=== PATIENT | female | born 1985 | race African-American/Black ===

== ENCOUNTER 2017-04-04 03:08 | Emergency (ER) | payer SELFPAY ==
[~2017-04-04] VITALS: Ht 188 cm; Wt 86.4 kg
[2017-04-04 03:12] VITALS: BP 142/71; PULSE 92; RESP 20; O2SAT 100
[2017-04-04] MEDS ORDERED: MORPHINE SULFATE 4 MG/ML INJ IV PUSH ONE (03:30)
[2017-04-04] MEDS ORDERED: SODIUM CHLORIDE 0.9% FLUSH 10 ML FLUSH IVF PRN (03:30)
[2017-04-04 03:32] VITALS: BP_SYST 113; BP_SYST 116; BP_DIAS 65; BP_DIAS 76; PULSE 67; TEMP 98.4
[2017-04-04 03:45] LABS: AUTOMATED NEUTROPHIL # 3.6 TH/MM3 (1.8-7.7); BASOPHIL % 0.6 % (0.0-2.0); EOSINOPHIL # 0.3 TH/MM3 (0-0.4); EOSINOPHIL % 4.9 % (0.0-4.0); HEMATOCRIT 30.2 % (35.0-46.0); HEMO FLAGS DIFF FINAL; LYMPH % 32.8 % (9.0-44.0); LYMPHOCYTE # 2.3 TH/MM3 (1.0-4.8); MEAN CORPUSCULAR HEMOGLOBIN 28.4 PG (27.0-34.0); NEUT % 51.7 % (16.0-70.0); PLATELET COUNT 143 TH/MM3 (150-450); RED BLOOD COUNT 3.52 MIL/MM3 (4.00-5.30); RED CELL DISTRIBUTION WIDTH 13.5 % (11.6-17.2)
--- NOTE | 2017-04-04 03:52 | RADRPT ---
EXAM DATE/TIME: 04/04/2017 03:20 [place] COMPARISON: CHEST SINGLE AP, January 19, 2015, 11:36. INDICATIONS : Chest pain. MEDICAL HISTORY : None. SURGICAL HISTORY : None. ENCOUNTER: Initial ACUITY: 1 day PAIN SCORE: 8/10 LOCATION: Bilateral chest FINDINGS: A single view of the chest demonstrates the lungs to be symmetrically aerated without evidence of mas s, infiltrate or effusion. The cardiomediastinal contours are unremarkable. Osseous structures are intact. CONCLUSION: No evidence of acute cardiopulmonary disease. Lars Vanegas MD on April 04, 2017 at 3:50 Board Certified Radiologist. This report was verified electronically.
[2017-04-04 04:00] LABS: PROTHROMBIN TIME - PATIENT 11.4 SEC (9.8-11.6)
[2017-04-04 04:12] LABS: ANION GAP 7 MEQ/L (5-15); BICARBONATE 24.7 MEQ/L (21.0-32.0); BLOOD UREA NITROGEN 12 MG/DL (7-18); CHLORIDE 109 MEQ/L (98-107); GLOMERULAR FILTRATION RATE 160 ML/MIN (>89); MAGNESIUM 1.8 MG/DL (1.5-2.5); POTASSIUM 3.5 MEQ/L (3.5-5.1); SODIUM (NA) 141 MEQ/L (136-145)
[2017-04-04 04:15] LABS: CREATINE KINASE 113 U/L (26-192)
[2017-04-04 04:27] LABS: CKMB 1.3 NG/ML (0.5-3.6)
--- NOTE | 2017-04-04 04:37 | PD ---
HPI Chief Complaint: Chest Pain Time Seen by Provider: 03:23 Travel History International Travel<30 days: No Contact w/Intl Traveler<30days: No Traveled to known affect area: No History of Present Illness HPI 31-year-old female was brought into the emergency room by EMS with history of chest pain and near-syncope. Patient says her pain is on the left side and has been going on for past couple days but worse today. Pain is sharp and is just there all the time. No aggravating or relieving factors identified. She seemed anxious. Vital signs were stable. Patient says she has history of PE that was diagnosed about a year or 2 ago but she stayed on the anticoagulant only for 2 weeks. She was told she didn't need it anymore since the clot was gone. [facility] Past Medical History Narrative Medical List of her past medical, surgical, social and family history is reviewed from the nursing note. Cardiovascular Problems: Yes ("BLOOD CLOT IN LUNG") Chest Pain: Yes (with bld clots 2011) Diabetes: No Diminished Hearing: No Musculoskeletal: Yes (CHRONIC BACK PAIN -PREVIOUS INJURY; 2 BULGING DISKS) ?: Unknown : 1 Para: 1 Social History Alcohol Use: Yes (OCCASIONALLY) Tobacco Use: Yes Substance Use: No Allergies-Medications (Allergen,Severity, Reaction): Coded Allergies: No Known Allergies (Verified , 05/03/16) Comments No known drug allergies. Reported Meds & Prescriptions Reported Meds & Active Scripts Active No Active Prescriptions or Reported Medications Narrative Medication List of her home medications reviewed from the nursing note. Review of Systems Except as stated in HPI: all other systems reviewed are Neg Physical Exam Narrative GENERAL: Awake, alert, anxious, moderate distress SKIN: Focused skin assessment warm/dry. HEAD: Atraumatic. Normocephalic. EYES: Pupils equal and round. No scleral icterus. No injection or drainage. ENT: No nasal bleeding or discharge. Mucous membranes pink and moist. NECK: Trachea midline. No JVD. CARDIOVASCULAR: Regular rate and rhythm. No murmur appreciated. RESPIRATORY: No accessory muscle use. Clear to auscultation. Breath sounds equal bilaterally. GASTROINTESTINAL: Abdomen soft, non-tender, nondistended. Hepatic and splenic margins not palpable. MUSCULOSKELETAL: No obvious deformities. No clubbing. No cyanosis. No edema. NEUROLOGICAL: Awake and alert. No obvious cranial nerve deficits. Motor grossly within normal limits. Normal speech. PSYCHIATRIC: Appropriate mood and affect; insight and judgment normal. Data Data Last Documented VS Vital Signs Date Time Temp Pulse Resp B/P Pulse Ox O2 Delivery O2 Flow Rate FiO2 04/04/17 03:32 98.4 67 113/65 Room Air 116/76 04/04/17 03:31 100 04/04/17 03:12 20 Orders Electrocardiogram (04/04/17:23) Basic Metabolic Panel (Bmp) (04/04/17 03:23) Ckmb (Isoenzyme) Profile (04/04/17 03:23) Complete Blood Count With Diff (04/04/17:23) D-Dimer (04/04/17) Magnesium (Mg) (04/04/17:23) Prothrombin Time / Inr (Pt) (04/04/17:23) Troponin I (04/04/17:23) Chest, Single Ap (04/04/17:) Ecg Monitoring (04/04/17:23) Bilateral Bp Monitoring (04/04/17:23) Iv Access Insert/Monitor (04/04/17:23) Oximetry (04/04/17:23) Oxygen Administration (04/04/17:23) Sodium Chloride 0.9% Flush (Ns Flush) (04/04/17 03:30) Morphine Inj (Morphine Inj) (04/04/17 03:30) CKMB (04/04/17 03:25) CKMB% (04/04/17 03:25) Labs Laboratory Tests Test 04/04/17 03:25 White Blood Count 7.0 TH/MM3 Red Blood Count 3.52 MIL/MM3 Hemoglobin 10.0 GM/DL Hematocrit 30.2 % Mean Corpuscular Volume 86.0 FL Mean Corpuscular Hemoglobin 28.4 PG Mean Corpuscular Hemoglobin 33.0 % Concent Red Cell Distribution Width 13.5 % Platelet Count 143 TH/MM3 Mean Platelet Volume 8.6 FL Neutrophils (%) (Auto) 51.7 % Lymphocytes (%) (Auto) 32.8 % Monocytes (%) (Auto) 10.0 % Eosinophils (%) (Auto) 4.9 % Basophils (%) (Auto) 0.6 % Neutrophils # (Auto) 3.6 TH/MM3 Lymphocytes # (Auto) 2.3 TH/MM3 Monocytes # (Auto) 0.7 TH/MM3 Eosinophils # (Auto) 0.3 TH/MM3 Basophils # (Auto) 0.0 TH/MM3 CBC Comment DIFF FINAL Differential Comment Prothrombin Time 11.4 SEC Prothromb Time International 1.0 RATIO Ratio D-Dimer Quantitative (PE/DVT) 0.40 MG/L FEU Sodium Level 141 MEQ/L Potassium Level 3.5 MEQ/L Chloride Level 109 MEQ/L Carbon Dioxide Level 24.7 MEQ/L Anion Gap 7 MEQ/L Blood Urea Nitrogen 12 MG/DL Creatinine 0.54 MG/DL Estimat Glomerular Filtration 160 ML/MIN Rate Random Glucose 82 MG/DL Calcium Level 8.5 MG/DL Magnesium Level 1.8 MG/DL Total Creatine Kinase 113 U/L Creatine Kinase MB 1.3 NG/ML Troponin I LESS THAN 0.02 NG/ML MDM Medical Decision Making Medical Screen Exam Complete: Yes Emergency Medical Condition: Yes Medical Record Reviewed: Yes Interpretation(s) Twelve-lead EKG was reviewed by me. Normal sinus rhythm, left axis deviation, nonspecific ST-T wave changes, IVCD. Heart rate of 73 bpm. Differential Diagnosis ACS, PE, nonspecific chest pain Narrative Course 4:36 AM blood test results of back and within normal limits. D-dimer is negative. Patient's only risk factor is her being smoker. She is a young otherwise healthy female. I'm comfortable discharging her home based on the blood test results become normal. Procedures EKG Prior to Arrival: No Diagnosis Primary Impression: Nonspecific chest pain Referrals: Primary Care Physician Additional Instructions: Please return to the ER if the condition worsens. Otherwise follow-up with your primary care in couple days. Take Tylenol/Motrin/ibuprofen for your pain. Med/Other Pt SpecificInfo: No Change to Meds Scripts No Active Prescriptions or Reported Meds Disposition: DISCHARGE HOME Condition: Stable Ramon Richards MD Apr 04, 2017 04:37
--- NOTE | 2017-04-04 10:46 | EKG ---
Date Performed: 04/04/2017 Time Performed: 03:18:41 PTAGE: 31 years EKG: Sinus rhythm WITH SINUS ARRHYTHMIA LEFT ANTERIOR FASCICULAR BLOCK ABNORMAL ECG PREVIOUS TRACING : 01/19/2015 11.17 Left bundle branch block not present in this tracing compar ed to the prior. DOCTOR: Oren Maki Interpretating Date/Time 04/04/2017 10:44:45
== END 2017-04-04 05:58 | disposition home or self-care (01) ==
LOC: NEPE 03:08
DX: R07.9 Chest pain, unspecified (principal); R55 Syncope and collapse; F17.210 Nicotine dependence, cigarettes, uncomplicated
CPT/HCPCS: 71010; 80048; 82550; 82552; 83735; 84484; 85025; 85379; 85610; 93005; 96374; 99285; J2270

== ENCOUNTER 2018-08-07 11:39 | Inpatient (IN) ==
[2018-08-07] MEDS ORDERED: Acetaminophen 325 MG Tablet PO ONE (12:54)
[2018-08-07] MEDS ORDERED: Sod Chloride 0.9% Inj 1,000 ML IV.SIG ONE (12:54)
--- NOTE | 2018-08-07 13:53 | ED ---
HPI General Chief Complaint: Abdominal Pain Stated Complaint: Vomiting Time Seen by Provider: 08/07/18 12:39 Source: patient Mode of arrival: ambulatory Limitations: no limitations History of Present Illness HPI narrative: 33-year-old female presents the ED for evaluation of abdominal pain. Cramping in nature, rated 8/10, intermittent. Onset this morning around 9 AM. Patient states her last menstrual period was the first week of June. She endorses risks of . She endorses an episode of nausea in the waiting room. She denies fever, chills, changes in bowel habits, dysuria, hematuria, vaginal bleeding, vaginal discharge, back pain. She denies chronic health problems and takes no daily medications. No treatment attempted before arrival. Related Data Previous Rx's Medication Instructions Recorded ibuprofen 600 mg PO TID #20 tab 08/08/18 oxycodone-acetaminophen 1 - 2 tab PO Q4H PRN #15 tab 08/08/18 Allergies Allergy/AdvReac Type Severity Reaction Status Date / Time No Known Allergies Allergy Verified 08/07/18 12:02 Review of Systems ROS: all other systems reviewed are negative PMFSH Medical History Medical History Patient denies medical problems (Acute) Surgical History Surgical History No history of previous surgery (Acute) Family History Family History Other Family history of cancer Family history of diabetes mellitus Family history of hypertension Social History Social History Substance History: No History of Abuse Second Hand Smoke Exposure: Yes Smoking Status: Current every day smoker Tobacco Type: Cigarettes How Often Do You Have a Drink Containing Alcohol: 2 to 4 times a month Recent Travel in [facility] within the Last 8 Weeks: No Recent Out of Country Travel within the Last 8 Weeks: No Immunization History Tetanus Immunization: >5 Years Exam Narrative Exam Narrative: GENERAL: Well-nourished, well-developed, anxious - [place] female no acute distress. SKIN: Focused skin assessment warm/dry. HEAD: Atraumatic. Normocephalic. EYES: Pupils equal and round. No scleral icterus. No injection or drainage. ENT: No nasal bleeding or discharge. Mucous membranes pink and moist. NECK: Trachea midline. No JVD. CARDIOVASCULAR: Regular rate and rhythm. No murmur appreciated. RESPIRATORY: No accessory muscle use. Clear to auscultation. Breath sounds equal bilaterally. GASTROINTESTINAL: Abdomen soft, nondistended. Active bowel sounds. Tender to palpation in the suprapubic region and RLQ. No palpable masses. Hepatic and splenic margins not palpable. PELVIC: MUSCULOSKELETAL: No obvious deformities. No clubbing. No cyanosis. No edema. NEUROLOGICAL: Awake and alert. No obvious cranial nerve deficits. Motor grossly within normal limits. Normal speech. PSYCHIATRIC: Appropriate mood and affect; insight and judgment normal. Course Initial Documented Vital Signs Temperature 98.1 F 08/07/18 11:56 Pulse Rate 75 08/07/18 11:56 Respiratory Rate 19 08/07/18 11:56 Blood Pressure 123/72 08/07/18 11:56 Pulse Oximetry 100 08/07/18 11:56 Last Documented Vital Signs Temperature 98.2 F 08/08/18 08:00 Pulse Rate 68 08/08/18 08:00 Respiratory Rate 18 08/08/18 09:34 Blood Pressure 117/61 08/08/18 08:00 Pulse Oximetry 98 08/08/18 08:00 Medical Decision Making LORI Attestation LORI supervised visit: Yes Attestation: I, Dr. Contreras, have reviewed the advance practice practitioner's documentation and am in agreement, met with the patient face to face, made the diagnosis, and the medical decision making was done by me. *My assessment and Findings: Ectopic MDM Narrative Medical decision making narrative: 33-year-old presents the ED for evaluation of cramping lower abdominal pain that started this morning. No vaginal bleeding at home but noticed vaginal bleeding upon urination here in the emergency room. Vitals reviewed. Physical exam reveals suprapubic and right adnexal tenderness. Patient was made n.p.o., placed on continuous cardiac monitoring, IV was placed. CBC reveals WBCs 6.9, hemoglobin 10 which is baseline per chart review. Patient's beta hCG 3541. UA without evidence of UTI. Ultrasound reveals right adnexal/ovarian live ectopic with cardiac activity at 117 bpm, positive pole and yolk sac. Measuring 6 weeks 0 days. I discussed the results of the workup with the patient as well as the need for admission and possible surgical intervention. The on-call OB/ GRINDING ROOM SUPERVISOR resident, Dr. Boyle was contacted. She came to the emergency room to evaluate the patient. Plan to admit to Dr. Kenyon and take to surgery later tonight. Please see [facility]OF[facility]IAL ORTHOPEDICS DENTIST notes for disposition Medical Screen Exam Complete: Yes Emergency Medical Condition: Yes Differential Diagnosis Differential Diagnosis: versus ectopic versus ovarian torsion versus appendicitis versus other Lab Data Result diagrams: 08/07/18 13:16 08/07/18 13:16 POC Results POC Urine Results Positive Lab Results 08/07/18 08/07/18 08/07/18 Range/Units 13:16 13:16 13:25 WBC 6.9 (4.0-11.0) th/mm3 RBC 3.38 L (4.00-5.30) mil/mm3 Hgb 10.0 L (11.6-15.3) gm/dL Hct 30.2 L (35.0-46.0) % MCV 89.4 (80.0-100.0) fL MCH 29.6 (27.0-34.0) pg MCHC 33.1 (32.0-36.0) % RDW 13.8 (11.6-17.2) % Plt Count 149 L (150-450) th/mm3 MPV 8.5 (7.0-11.0) fL Neut % (Auto) 76.6 H (16.0-70.0) % Lymph % (Auto) 16.0 (9.0-44.0) % [place] % (Auto) 6.4 (0.0-8.0) % Eos % (Auto) 0.6 (0.0-4.0) % Baso % (Auto) 0.4 (0.0-2.0) % Neut # (Auto) 5.3 (1.8-7.7) th/mm3 Lymph # (Auto) 1.1 (1.0-4.8) th/mm3 [place] # (Auto) 0.4 (0.0-0.9) th/mm3 Eos # (Auto) 0.0 (0.0-0.4) th/mm3 Baso # (Auto) 0.0 (0.0-0.2) th/mm3 WBC Differential . Differential Comment Auto diff final Sodium 139 (136-145) meq/L Potassium 3.7 (3.5-5.1) meq/L Chloride 108 H (98-107) meq/L Carbon Dioxide 23.1 (21.0-32.0) meq/L Anion Gap 8 (5-15) meq/L BUN 7 (7-18) mg/dL Creatinine 0.50 (0.50-1.00) mg/dL Estimated GFR Greater than 89 (>89) mL/min Random Glucose 89 (74-106) mg/dL Calcium 8.1 L (8.5-10.1) mg/dL Magnesium 2.0 (1.5-2.5) mg/dL Total Bilirubin 0.4 (0.2-1.0) mg/dL AST 7 L (15-37) U/L ALT 13 (10-53) U/L Alkaline Phosphatase 37 L (45-117) U/L Total Protein 6.8 (6.4-8.2) g/dL Albumin 3.6 (3.4-5.0) g/dL Lipase 71 L (73-393) U/L Beta HCG, Quant 3541 H (0-5) mIU/mL Urine Color Yellow (Yellw/Straw) Urine Clarity Clear (Clear) Urine pH 6.0 (5.0-8.5) Ur Specific [place] 1.010 (1.002-1.035) Urine Protein Negative (Neg-Trace) mg/dL Urine Glucose (UA) Negative (Negative) mg/dL Urine Ketones Trace H (Negative) mg/dL Urine Occult Blood Negative (Negative) Urine Nitrate Negative (Negative) Urine Bilirubin Negative (Negative) Urine Urobilinogen Less than 2 (Less than 2) mg/dL Ur Leukocyte Esterase Negative (Negative) Urine RBC 1 (0-3) /hpf Urine WBC 1 (0-5) /hpf Ur Squamous Epith Cells 3 (0-5) /hpf Urine Bacteria Rare H (None) /hpf Micro UA Comment Culture not ind Ur Microscopic Review Not Reportable Urine Culture Comments Culture not ind Blood Type Antibody Screen 08/07/18 Range/Units 15:52 WBC (4.0-11.0) th/mm3 RBC (4.00-5.30) mil/mm3 Hgb (11.6-15.3) gm/dL Hct (35.0-46.0) % MCV (80.0-100.0) fL MCH (27.0-34.0) pg MCHC (32.0-36.0) % RDW (11.6-17.2) % Plt Count (150-450) th/mm3 MPV (7.0-11.0) fL Neut % (Auto) (16.0-70.0) % Lymph % (Auto) (9.0-44.0) % [place] % (Auto) (0.0-8.0) % Eos % (Auto) (0.0-4.0) % Baso % (Auto) (0.0-2.0) % Neut # (Auto) (1.8-7.7) th/mm3 Lymph # (Auto) (1.0-4.8) th/mm3 [place] # (Auto) (0.0-0.9) th/mm3 Eos # (Auto) (0.0-0.4) th/mm3 Baso # (Auto) (0.0-0.2) th/mm3 WBC Differential Differential Comment Sodium (136-145) meq/L Potassium (3.5-5.1) meq/L Chloride (98-107) meq/L Carbon Dioxide (21.0-32.0) meq/L Anion Gap (5-15) meq/L BUN (7-18) mg/dL Creatinine (0.50-1.00) mg/dL Estimated GFR (>89) mL/min Random Glucose (74-106) mg/dL Calcium (8.5-10.1) mg/dL Magnesium (1.5-2.5) mg/dL Total Bilirubin (0.2-1.0) mg/dL AST (15-37) U/L ALT (10-53) U/L Alkaline Phosphatase (45-117) U/L Total Protein (6.4-8.2) g/dL Albumin (3.4-5.0) g/dL Lipase (73-393) U/L Beta HCG, Quant (0-5) mIU/mL Urine Color (Yellw/Straw) Urine Clarity (Clear) Urine pH (5.0-8.5) Ur Specific [place] (1.002-1.035) Urine Protein (Neg-Trace) mg/dL Urine Glucose (UA) (Negative) mg/dL Urine Ketones (Negative) mg/dL Urine Occult Blood (Negative) Urine Nitrate (Negative) Urine Bilirubin (Negative) Urine Urobilinogen (Less than 2) mg/dL Ur Leukocyte Esterase (Negative) Urine RBC (0-3) /hpf Urine WBC (0-5) /hpf Ur Squamous Epith Cells (0-5) /hpf Urine Bacteria (None) /hpf Micro UA Comment Ur Microscopic Review Urine Culture Comments Blood Type O Positive Antibody Screen Negative Imaging Data Radiologist's impression: Pelvis Ultrasound 08/07/18 12:54 CONCLUSION: 1. Right adnexal/ovarian ectopic with cardiac activity. The heart rate was calculated 117 bpm. A yolk sac is present. The pole correlates to gestational age of 6 weeks and 0 days. Trace free fluid is noted. The findings were called immediately to Michelle Cabrera at 3:50 PM on 08/07/2018. 2. Complex fluid collection within the endometrial cavity and extending into a tubular structure within the left adnexal region. Discharge Plan Discharge Disposition Patient Disposition: 31 Still Patient Discharge Condition Condition: Stable Discharge Order Discharge Orders: Discharge Order (Routine); Ordered 08/08/18 Ordered By: Nicolasa Burgos Discharge Details Anticipated Discharge Date: 08/08/18 Physicians Team ED Provider: Luis Contreras ED Midlevel Provider: Michelle Cabrera Primary Care Provider: Matt Savage Attending Provider: Hilary Kenyon Other Providers: Nicolasa Burgos Status ED Status: Left Department Discharge Information Discharge Date/Time: 08/07/18 17:44
[2018-08-07 14:01] LABS: Baso % (Auto) 0.4 % (0.0-2.0); Eos % (Auto) 0.6 % (0.0-4.0); Hematocrit 30.2 % (35.0-46.0); Lymph # (Auto) 1.1 th/mm3 (1.0-4.8); Mean Corpuscular HGB Conc 33.1 % (32.0-36.0); Mean Corpuscular Hemoglobin 29.6 pg (27.0-34.0); Mean Corpuscular Volume 89.4 fL (80.0-100.0); Mean Platelet Volume 8.5 fL (7.0-11.0); Mono # (Auto) 0.4 th/mm3 (0.0-0.9); Mono % (Auto) 6.4 % (0.0-8.0); Neut # (Auto) 5.3 th/mm3 (1.8-7.7); Neut % (Auto) 76.6 % (16.0-70.0); Platelet Count 149 th/mm3 (150-450); Red Blood Count 3.38 mil/mm3 (4.00-5.30); Red Cell Distribution Width 13.8 % (11.6-17.2); White Blood Count 6.9 th/mm3 (4.0-11.0)
[2018-08-07 14:06] LABS: Bacteria,Urine Rare /hpf; Bilirubin,Urine Negative (Negative); Clarity,Urine Clear (Clear); Color,Urine Yellow (Yellw/Straw); Glucose,Urine (UA) Negative (Negative); Leukocyte Esterase,Urine Negative (Negative); Nitrite,Urine Negative (Negative); Squamous Epithelial Cell,Urine 3 /hpf (0-5)
[2018-08-07 14:30] LABS: Alanine Aminotransferase 13 U/L (10-53); Albumin 3.6 g/dL (3.4-5.0); Anion Gap 8 meq/L (5-15); Aspartate Aminotransferase 7 U/L (15-37); Blood Urea Nitrogen 7 mg/dL (7-18); Calcium 8.1 mg/dL (8.5-10.1); Carbon Dioxide 23.1 meq/L (21.0-32.0); Chloride 108 meq/L (98-107); Glomerular Filtration Rate Greater Than 89 mL/min (>89); Glucose,Random 89 mg/dL (74-106); Lipase 71 U/L (73-393); Potassium 3.7 meq/L (3.5-5.1); Sodium 139 meq/L (136-145)
[2018-08-07] MEDS ORDERED: Morphine Inj 4 MG/ML Vial IV.PUSH ONE (14:46)
[2018-08-07 14:47] LABS: Alkaline Phosphatase 37 U/L (45-117); Beta HCG,Quantitative 3541 mIU/mL (0-5); Total Protein 6.8 g/dL (6.4-8.2)
--- NOTE | 2018-08-07 15:55 | US ---
EXAM DATE: 08/07/2018 3:27 PM EST AGE/SEX: 33 years / Female INDICATIONS: Pelvic pain. CLINICAL DATA: This is the patient's initial encounter. Patient reports that signs and symptoms have been present for 1 day and indicates a pain score of 9/10. MEDICAL/SURGICAL HISTORY: . . COMPARISON: No prior exams available for comparison. TECHNIQUE: Real-time ultrasound of the pelvis was performed using an endovaginal transducer. [facility] MEASUREMENTS: Uterus:__5.5 x 6.0 x 3.3 cm Endometrial Stripe:__>20 mm Right Ovary:__ 5.5 x 5.9 x 3.3 cm Left Ovary:__ not seen Not visualized. FINDINGS: No intrauterine gestational sac is identified. There is evidence of a right adnexal/ovarian ectopic p regnancy with cardiac activity. The heart rate was calculated 117 bpm. A yolk sac is present. The fet al pole correlates to gestational age of 6 weeks and 0 days. Trace free fluid is noted. There is complex fluid collection within the endometrial cavity. Complex fluid is also noted within a tubular structure within the left adnexal region. CONCLUSION: 1. Right adnexal/ovarian ectopic with cardiac activity. The heart rate was calculated 117 bpm. A yolk sac is present. The pole correlates to gestational age of 6 weeks and 0 days. Trace free fluid is noted. The findings were called immediately to Michelle Cabrera at 3:50 PM on 8. 2. Complex fluid collection within the endometrial cavity and extending into a tubular structure wit hin the left adnexal region. Electronically signed by: Kota Majano MD 08/07/2018 3:53 PM EST
--- NOTE | 2018-08-07 16:17 | P.HPOB ---
History of Present Illness Primary Care Physician: Matt Savage MD Chief Complaint: abdominal pain History of Present Illness: 33-year-old female presents to the ED with sharp and cramping, right-sided and suprapubic abdominal pain that woke her from sleep this morning at 8:30 AM. She states that originally felt like menstrual cramps and took Midol x2 for the pain. She experienced no relief with this medication, which prompted her to come to the emergency room. She admits to nausea and 3 episodes of vomiting today. No blood in the vomit. Denies fever, but notes chills when the pain comes on. She states that her pain has abated moderately with morphine. Patient states that she started experiencing vaginal bleeding in the ED after urinating. She notes dark red blood that filled up about half of a specimen cup. No clots noticed. Denies vaginal discharge. Denies chest pain, shortness of breath, problems urinating, diarrhea, constipation, leg pain or swelling. Patient states the last menstrual period was during the first week of June lasted for about 8 days, normal flow. Last had unprotected intercourse on June 24, states that she had a period that lasted for 8 days, which started on June 25. No history of STDs and denies exposure to STDs recently. She is monogamous with her boyfriend of 4 years. She was unaware that she was she was told in the ED. Since that she thought her period was late because she has a history of irregular and unpredictable periods , though she does get a period every month. They last anywhere between 3-4 or up to 8 days. Moderate flow. This was an unplanned , however, patient is tearful at the thought that the who have to be terminated for her health. OBGYN history: , has a 12-year-old daughter at home. No or delivery complications. Not currently on control, but had taken OCP in the past, prior to her first . She notes that she was in unreliable pill taker. She has gotten the Depo shot in the past. Reached menarche at 12-13 years of age Past medical history: PE in 2013 Medications: None Allergies: NKDA Surgical hx: None Social: Works at [employer]. Smokes pack every 3-4 days. Occasional alcohol use. No drug use. OBGYN: None PCP: Scheduled to establish care with Dr. Savage in September. Review of Systems Constitutional: Reports chills, Denies fever(s) Ears, Nose, Mouth, and Throat: Denies nasal discharge, Denies sore throat Cardiovascular: Denies chest pain Respiratory: Denies shortness of breath Gastrointestinal: Reports abdominal pain, Reports cramping, Reports nausea, Reports vomiting, Denies constipation, Denies loose stools Genitourinary: Reports abnormal vaginal bleeding, Denies blood in urine, Denies painful urination, Denies vaginal discharge PMFSH - History History Provided By: Patient - Medical History Medical History: Medical History (Last Reviewed 08/07/18 @ 13:52 by TISH Olson) Patient denies medical problems - Surgical History Surgical History: Surgical History (Last Reviewed 08/07/18 @ 13:52 by TISH Olson) No history of previous surgery - Tobacco History Tobacco Use In Past 30 Days: Yes Smoking Status: Current every day smoker Tobacco Type: Cigarettes - Alcohol History How Often Do You Have a Drink Containing Alcohol: 2 to 4 times a month - Substance Use History Substance History: No History of Abuse - Travel History Recent Travel in the [place] Within the Last 8 Weeks: No Recent Travel Out of the Country Within the Last 8 Weeks: No - Immunization History Tetanus Immunization: >5 Years Medications and Allergies Active Medications: Active Medications Sodium Chloride (Ns Flush) 2 ml IV.FLUSH PRN PRN PRN Reason: FLUSH AFTER USING IV ACCESS Allergies Allergy/AdvReac Type Severity Reaction Status Date / Time No Known Allergies Allergy Verified 08/07/18 12:02 Home Medications Medication Instructions Recorded Confirmed Type No Known Home Medications 08/07/18 08/07/18 History Exam Vital signs: Vital Signs 08/07/18 11:56 08/07/18 12:54 Temperature 98.1 F Pulse Rate 75 Respiratory Rate 19 Blood Pressure 123/72 Pulse Oximetry 100 99 Intake & Output 08/06/18 08/07/18 08/07/18 18:59 06:59 18:59 Intake Total 1000 / 1000 Balance 1000 / 1000 Weight 79.379 kg Intake: IV 1000 / 1000 NS Inj 1,000 ML @ Wide Open IV. 1000 / 1000 SIG BOLUS ONE Rx#:[id number] Narrative: GENERAL: Well-nourished, well-developed patient. SKIN: Warm and dry. HEAD: Normocephalic and atraumatic. EYES: No scleral icterus. No injection or drainage. ENT: No nasal drainage noted. Mucous membranes pink. Airway patent. CARDIOVASCULAR: Regular rate and rhythm without murmurs, gallops, or rubs. RESPIRATORY: Breath sounds equal bilaterally. No accessory muscle use. BREASTS: Bilateral exam showed no masses , no retractions, no nipple discharge. ABDOMEN/GI: Abdomen soft, bowel sounds present. Exquisitely tender to light and moderate palpation with obvious rebound in RLQ. GENITOURINARY: External Genitalia: intact and normal in appearance. Exquisite tenderness on pelvic exam. Sterile speculum exam showed normal vagina mucosa with lesions, normal cervix , closed cervical os, moderate amount of blood in the vaginal vault. EXTREMITIES: No cyanosis or edema. NEUROLOGICAL: Awake and alert. Motor and sensory grossly within normal limits. Five out of 5 muscle strength in all muscle groups. Normal speech. Results - Labs CBC & Chem 7: 08/07/18 13:16 08/07/18 13:16 Labs: Laboratory Results - last 24 hr 08/07/18 08/07/18 08/07/18 13:16 13:16 13:25 WBC 6.9 RBC 3.38 L Hgb 10.0 L Hct 30.2 L MCV 89.4 MCH 29.6 MCHC 33.1 RDW 13.8 Plt Count 149 L MPV 8.5 Neut % (Auto) 76.6 H Lymph % (Auto) 16.0 [place] % (Auto) 6.4 Eos % (Auto) 0.6 Baso % (Auto) 0.4 Neut # (Auto) 5.3 Lymph # (Auto) 1.1 [place] # (Auto) 0.4 Eos # (Auto) 0.0 Baso # (Auto) 0.0 WBC Differential . Differential Comment Auto diff final Sodium 139 Potassium 3.7 Chloride 108 H Carbon Dioxide 23.1 Anion Gap 8 BUN 7 Creatinine 0.50 Estimated GFR Greater than 89 Random Glucose 89 Calcium 8.1 L Magnesium 2.0 Total Bilirubin 0.4 AST 7 L ALT 13 Alkaline Phosphatase 37 L Total Protein 6.8 Albumin 3.6 Lipase 71 L Beta HCG, Quant 3541 H Urine Color Yellow Urine Clarity Clear Urine pH 6.0 Ur Specific [place] 1.010 Urine Protein Negative Urine Glucose (UA) Negative Urine Ketones Trace H Urine Occult Blood Negative Urine Nitrate Negative Urine Bilirubin Negative Urine Urobilinogen Less than 2 Ur Leukocyte Esterase Negative Urine RBC 1 Urine WBC 1 Ur Squamous Epith Cells 3 Urine Bacteria Rare H Micro UA Comment Culture not ind Ur Microscopic Review Not Reportable Urine Culture Comments Culture not ind - Imaging Impressions Pelvis Ultrasound 08/07/18 12:54 CONCLUSION: 1. Right adnexal/ovarian ectopic with cardiac activity. The heart rate was calculated 117 bpm. A yolk sac is present. The pole correlates to gestational age of 6 weeks and 0 days. Trace free fluid is noted. The findings were called immediately to Michelle Cabrera at 3:50 PM on 08/07/2018. 2. Complex fluid collection within the endometrial cavity and extending into a tubular structure within the left adnexal region. Caprini VTE Risk Assessment Caprini VTE Risk Assessment: Moderate/High Risk (score >= 2) Caprini Risk Assessment Model: Point Value = 1 Point Value = 2 Point Value = 3 Point Value = 5 Age 41-60 Minor surgery BMI > 25 kg/m2 Swollen legs Varicose veins or History of unexplained or recurrent spontaneous Oral contraceptives or hormone replacement Sepsis (< 1 month) Serious lung disease, including pneumonia (< 1 month) Abnormal pulmonary function Acute myocardial infarction Congestive heart failure (< 1 month) History of inflammatory bowel disease Medical patient at bed rest Age 61-74 Arthroscopic surgery Major open surgery (> 45 min) Laparoscopic surgery (> 45 min) Malignancy Confined to bed (> 72 hours) Immobilizing plaster cast Central venous access Age >= 75 History of VTE Family history of VTE Factor V Leiden Prothrombin [id number] Lupus anticoagulant Anticardiolipin antibodies Elevated serum homocysteine Heparin-induced thrombocytopenia Other congenital or acquired thrombophilia Stroke (< 1 month) Elective arthroplasty Hip, pelvis, or leg fracture Acute spinal cord injury (< 1 month) Prophylaxis Regimen: Total Risk Factor Score Risk Level Prophylaxis Regimen 0-1 Low Early ambulation 2 Moderate Order ONE of the following: *Sequential Compression Device (SCD) *Heparin 5000 units SQ BID 3-4 Higher Order ONE of the following medications: *Heparin 5000 units SQ TID *Enoxaparin/Lovenox 40 mg SQ daily (WT < 150 kg, CrCl > 30 mL/min) *Enoxaparin/Lovenox 30 mg SQ daily (WT < 150 kg, CrCl > 10-29 mL/min) *Enoxaparin/Lovenox 30 mg SQ BID (WT < 150 kg, CrCl > 30 mL/min) AND/OR *Sequential Compression Device (SCD) 5 or more Highest Order ONE of the following medications: *Heparin 5000 units SQ TID (Preferred with Epidurals) *Enoxaparin/Lovenox 40 mg SQ daily (WT < 150 kg, CrCl > 30 mL/min) *Enoxaparin/Lovenox 30 mg SQ daily (WT < 150 kg, CrCl > 10-29 mL/min) *Enoxaparin/Lovenox 30 mg SQ BID (WT < 150 kg, CrCl > 30 mL/min) AND *Sequential Compression Device (SCD) Assessment and Plan - Diagnosis (1) Ectopic without intrauterine Code(s): O00.90 - Unspecified ectopic without intrauterine Status: Acute (2) 6 weeks gestation of Code(s): Z3A.01 - Less than 8 weeks gestation of Status: Acute - Plan 33-year-old female presents to the ED with sharp and cramping, right lower quadrant and suprapubic abdominal pain that started this morning. Patient also experiencing mild vaginal bleeding. B-HCG 3541. Pelvic US performed in ED showed "Right adnexal/ovarian ectopic with cardiac activity. The heart rate was calculated 117 bpm. A yolk sac is present. The pole correlates to gestational age of 6 weeks and 0 days. Trace free fluid is noted" , consistent with ectopic . 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 Shahzad Darling and Dr. Kenyon
--- NOTE | 2018-08-07 16:58 | P.PN ---
Subjective Interval history: [facility] Attending Patient was seen and examined by me. She is a 33 year-old who is approximately 6 weeks by her LMP. She presented to the ED with the onset of severe abdominal pain this morning, 05/04. The pain has continued although she had mild relief with morphine. She reports the onset of light bleeding like the start of her period since arriving to the ED. The patient was unaware she was . Her medical history is unsignificant except for a PE in 2012 and tobacco use. Review of data shows a Bhcg of 3514, Hgb 10.0, Ultrasound with a right adnexal mass with ectopic measuring approximately 4 x 3 cm. There is a heart rate observed of 117. Examination reveals a patient who is uncomfortable appearing. CTAB, RRR. Abdominal examination with NABS, RLQ tenderness with associated rebound. Pelvic examination reveals a small amount of blood in the posterior fornix, approximately 25 cc. The patient was consented for removal of ectopic with an examination under anesthesia and a likely laparoscopic salpingectomy with any other indicated procedures. The risks were discussed and include but are not limited to pain, infection, bleeding, removal of other affected organs, laparotomy, injury to other organs like the bladder/bowels/nerves/vessels, need for a repeat surgery, need for a blood transfusion, and other possible risks. All of the patient's questions were answered and consent was signed. The OR was notified and report given to Dr. Pike who is in agreement with plan and will perform the procedure. Physical Exam Vital signs: Vital Signs 08/07/18 11:56 08/07/18 12:54 08/07/18 16:27 Temperature 98.1 F Pulse Rate 75 74 Respiratory Rate 19 18 Blood Pressure 123/72 119/78 Pulse Oximetry 100 99 99 Intake & Output 08/06/18 08/07/18 08/07/18 18:59 06:59 18:59 Intake Total 1000 / 1000 Balance 1000 / 1000 Weight 79.379 kg Intake: IV 1000 / 1000 NS Inj 1,000 ML @ Wide Open IV. 1000 / 1000 SIG BOLUS ONE Rx#:[id number] Results - Labs CBC & Chem 7: 08/07/18 13:16 08/07/18 13:16 Laboratory Results - last 24 hr 11/13/18 11/13/18 11/13/18 13:16 13:16 13:25 WBC 6.9 RBC 3.38 L Hgb 10.0 L Hct 30.2 L MCV 89.4 MCH 29.6 MCHC 33.1 RDW 13.8 Plt Count 149 L MPV 8.5 Neut % (Auto) 76.6 H Lymph % (Auto) 16.0 [place] % (Auto) 6.4 Eos % (Auto) 0.6 Baso % (Auto) 0.4 Neut # (Auto) 5.3 Lymph # (Auto) 1.1 [place] # (Auto) 0.4 Eos # (Auto) 0.0 Baso # (Auto) 0.0 WBC Differential . Differential Comment Auto diff final Sodium 139 Potassium 3.7 Chloride 108 H Carbon Dioxide 23.1 Anion Gap 8 BUN 7 Creatinine 0.50 Estimated GFR Greater than 89 Random Glucose 89 Calcium 8.1 L Magnesium 2.0 Total Bilirubin 0.4 AST 7 L ALT 13 Alkaline Phosphatase 37 L Total Protein 6.8 Albumin 3.6 Lipase 71 L Beta HCG, Quant 3541 H Urine Color Yellow Urine Clarity Clear Urine pH 6.0 Ur Specific [place] 1.010 Urine Protein Negative Urine Glucose (UA) Negative Urine Ketones Trace H Urine Occult Blood Negative Urine Nitrate Negative Urine Bilirubin Negative Urine Urobilinogen Less than 2 Ur Leukocyte Esterase Negative Urine RBC 1 Urine WBC 1 Ur Squamous Epith Cells 3 Urine Bacteria Rare H Micro UA Comment Culture not ind Ur Microscopic Review Not Reportable Urine Culture Comments Culture not ind Blood Type 08/07/18 15:52 WBC RBC Hgb Hct MCV MCH MCHC RDW Plt Count MPV Neut % (Auto) Lymph % (Auto) [place] % (Auto) Eos % (Auto) Baso % (Auto) Neut # (Auto) Lymph # (Auto) [place] # (Auto) Eos # (Auto) Baso # (Auto) WBC Differential Differential Comment Sodium Potassium Chloride Carbon Dioxide Anion Gap BUN Creatinine Estimated GFR Random Glucose Calcium Magnesium Total Bilirubin AST ALT Alkaline Phosphatase Total Protein Albumin Lipase Beta HCG, Quant Urine Color Urine Clarity Urine pH Ur Specific [place] Urine Protein Urine Glucose (UA) Urine Ketones Urine Occult Blood Urine Nitrate Urine Bilirubin Urine Urobilinogen Ur Leukocyte Esterase Urine RBC Urine WBC Ur Squamous Epith Cells Urine Bacteria Micro UA Comment Ur Microscopic Review Urine Culture Comments Blood Type O Positive - Imaging Impressions Pelvis Ultrasound 08/07/18 12:54 CONCLUSION: 1. Right adnexal/ovarian ectopic with cardiac activity. The heart rate was calculated 117 bpm. A yolk sac is present. The pole correlates to gestational age of 6 weeks and 0 days. Trace free fluid is noted. The findings were called immediately to Michelle Cabrera at 3:50 PM on 08/07/2018. 2. Complex fluid collection within the endometrial cavity and extending into a tubular structure within the left adnexal region.
[2018-08-07] MEDS ORDERED: Lidocaine 1%/Epinephrine 1:100,000 Inj 30 ML Vial ONE (17:18)
[2018-08-07] MEDS ORDERED: Phenylephrine/NS 1000 MCG/10ML Syringe IV.PUSH ONE (17:42)
[2018-08-07] MEDS ORDERED: Lidocaine PF 1% Inj 5 ML Syringe OTHER ONE (17:42)
[2018-08-07] MEDS ORDERED: Ketorolac Inj 30 MG/ML (IVP) Vial IV.PUSH ONE (17:42)
[2018-08-07] MEDS ORDERED: ceFAZolin 2 GM Premix Inj 2 GM/50 ML PIGGYBACK IV.SIG ONE (17:52)
[2018-08-07] MEDS ORDERED: Fluorescein Sod 10% Inj 500 MG/5 ML Ampul IV.PUSH ONE (19:04)
[2018-08-07] MEDS ORDERED: fentaNYL Citrate Inj 100 MCG/2 ML Ampul ONE (19:55)
--- NOTE | 2018-08-07 19:55 | P.PCNOB ---
Pre-Op/Post-Op Diagnoses Operation Date: 08/07/18 17:00 <No data on this case meets the specified criteria> Right ectopic right ovarian Procedure: Procedures Operation Date: 08/07/18 17:00 Actual Procedures Side Surgeon p exam under anesthesia, lapaoscopy, removal of ectopic with right side salpingectomy-oophrectomy, cystoscopy Regan Pike MD Right salpingoopherctomy cystoscopy Estimated blood loss (mL): 150 Anesthesia type: General Complications: none Specimen: other (right tube and ovary) Findings: right ovarian with extensive adhesions nl cystoscopy Disposition: observation (late night, anemia, nausea) Narrative: see dictated note
[2018-08-07] MEDS: Sod Chloride 0.9% Inj 1,000 ML IV.CONT SCH (20:35)
[2018-08-07] MEDS ORDERED: Acetaminophen 325 MG Tablet PO PRN (20:49)
[2018-08-07] MEDS ORDERED: Simethicone 80 MG Chew Tablet PO PRN (20:49)
[2018-08-07] MEDS ORDERED: Zolpidem Tartrate 5 MG Tablet PO PRN (21:00)
--- NOTE | 2018-08-07 21:30 | MP ---
cc: Giancarlo Pike MD DATE OF OPERATION: 08/07/2018 PREOPERATIVE DIAGNOSIS: Right ectopic . POSTOPERATIVE DIAGNOSIS: 1. Right ovarian . 2. Left hydrosalpinx. SURGEON: Giancarlo Pike MD. ANESTHESIA: General endotracheal and OG tube. ELECTRIC POWER MACHINE OPERATOR: [place] staff x1. ESTIMATED BLOOD LOSS: 250 mL upon entry into the abdominal cavity, additional 150 mL during the case. FLUID: 1000 mL crystalloid. URINE OUTPUT: 200 mL PROCEDURES: 1. Laparoscopic right salpingo-oophorectomy. 2. Lysis of adhesions. 3. Revision of a left hydrosalpinx. 4. Diagnostic cystoscopy. FINDINGS: External genitalia normal. POP-Q score Aa is -3, Ap is -2, point C is -8, total vaginal length is 10, vaginal hiatus is 6, perineal body is 4. Internal anatomy shows extensive adhesions consistent with prior chronic PID. Left tube significantly hydropic, but ovary is normal on the left. The right tube and ovary are intimately involved with ectopic , unable to separate the tube and the ovary. Bowel normal. Appendix normal. Upper abdomen normal. DIAGNOSTIC CYSTOSCOPY: Intraoperatively shows a normal trigone, good coaptation of the urethra, ureteral orifice patent x2, dome and base of bladder normal. SPECIMENS: Right tube and ovary. COMPLICATIONS: None. DISPOSITION: Recovery room, stable. COUNTS: Needle and sponge counts correct. DRAINS: Argueta catheter. DVT PROPHYLAXIS: Sequential compression devices. ANTIBIOTIC PROPHYLAXIS: Ancef 2 grams. INDICATIONS FOR PROCEDURE: The patient presented to emergency room with signs and symptoms consistent with ectopic . She had elevated hCG over 3000. She had a right lower quadrant, rebound tenderness and had an ultrasound that showed a complex mass involving the right tube and ovary with a heartbeat noted. The patient was taken to the OR, identified, prepped and draped in standard fashion for procedure in dorsal lithotomy position with careful attention paid to both legs in stirrups to avoid undue stress neurovascular structures; above findings noted. The recommended document. Argueta catheter placed. Umbilicus was infiltrated with epinephrine and lidocaine solution. A small incision was made in the 5 mm trocar. The 5 mm trocar was placed under direct visualization. Gas insufflated and the above findings noted. A 10-12 trocar was placed suprapubically under direct visualization. Left lower quadrant incision was made and a trocar was placed after anesthetizing the area and using a needle as a guide. There was a significant distortion of anatomy on the right side. This had the appearance of an ovarian as the tube and ovary were intimately involved with a complex mass. There was no way to separate two. A decision was made to remove the ovary and tube on the right side. Ureter was identified and the right. We took down the infundibulopelvic ligament, the uteroovarian ligament, and the tube without complication. On the right side, this area was hemostatic with the gas pressure on the left. There was significant distortion of the tube. The tube was fenestrated and decompressed without complications. Gas was expressed. All were hemostatic with gas pressure. At this point, cystoscopy was performed using a 17-Stateless bridge, a 70-degree scope. The patient received fluorescein 1 mL. The fluorescein was clearly obvious that there was patency of the ureters x2 with a green urine flowing from both ureteral orifices briskly to localize the dome and the base of bladder were normal. At this point, attention was turned back to the abdomen. Again pelvis inspected, irrigated. All areas were hemostatic. We did place a hemostatic powder for added reassurance and then we expressed gas from the abdomen, closed the 07/06/2018 port with deep Vicryl suture, incorporating the fascia closed the skin with 4-0 Monocryl and Dermabond. The procedure was concluded. The patient taken to recovery in stable condition. MD HEIDI Escudero/russell , 08:03 PM , 08:12 PM
[2018-08-08] MEDS: Sod Chloride 0.9% Inj 1,000 ML IV.CONT SCH ×3 (02:54→09:41)
[2018-08-08 06:53] VITALS: O2SAT 98
--- NOTE | 2018-08-08 08:24 | P.PNOB ---
Assessment and Plan (1) Ectopic without intrauterine Status: Acute Assessment and plan: s/p laparoscopic right salpingo-oophorectomy PPD#1 Routine post-op care including pain control Discharge today (2) 6 weeks gestation of Status: Acute - Postoperative Procedures Operation Date: 08/07/18 17:00 Actual Procedures Side Surgeon p exam under anesthesia, lapaoscopy, removal of ectopic with right side salpingectomy-oophrectomy, cystoscopy Regan Pike MD Postoperative day: 1 Postoperative status: doing well Postoperative plan: routine post-op care, discharge - Time Spent With Patient Total time spent is greater than 50% in coordination of care (as documented) at patient's floor/unit and/or counseling patient: Subjective Interval history: Patient is a 33-year-old who presented to the ED with sharp, cramping right -sided and suprapubic abdominal pain. US found evidence of right adnexal/ ovarian ectopic with cardiac activity. Patient was then taken to OR for a laparoscopic right salpingo-oophorectomy by Dr. Pike. Patient doing well this morning. Her pain is well-controlled. She denies chest pain, shortness of breath, nausea and vomiting. She denies lower extremity pain and swelling. All questions were answered. Patient to be discharged today. Subjective: patient reports feeling better, patient desires discharge, pain is well controlled, patient is tolerating oral intake Physical Exam Vital signs: Temp Pulse Resp BP Pulse Ox 97.9 F 80 17 113/60 98 08/08/18 04:49 08/08/18 04:49 08/08/18 04:49 08/08/18 04:49 08/08/18 04:49 Narrative: GENERAL: Patient is well-developed, well-nourished in no acute distress. SKIN: Warm and dry. HEAD: Atraumatic. Normocephalic. EYES: Pupils equal and round. No scleral icterus. No injection or drainage. ENT: No nasal bleeding or discharge. Mucous membranes pink and moist. CARDIOVASCULAR: Regular rate and rhythm. RESPIRATORY: No accessory muscle use. Clear to auscultation. Breath sounds equal bilaterally. GASTROINTESTINAL: Abdomen soft, non-tender, nondistended. MUSCULOSKELETAL: Extremities without clubbing, cyanosis, or edema. No obvious deformities. NEUROLOGICAL: Awake and alert. No obvious cranial nerve deficits. PSYCHIATRIC: Appropriate mood and affect; insight and judgment normal. - Urinary Catheter Management Indwelling Urethral Catheter Cath placed during this visit: yes Urethral indwelling: Yes Reason for Continuing: Decision to DC catheter Insertion date: 08/07/18 Insertion time: 18:05 Results - Labs CBC & Chem 7: 08/07/18 13:16 08/07/18 13:16 Labs: Laboratory Results - last 24 hr 08/07/18 08/07/18 08/07/18 13:16 13:16 13:25 WBC 6.9 RBC 3.38 L Hgb 10.0 L Hct 30.2 L MCV 89.4 MCH 29.6 MCHC 33.1 RDW 13.8 Plt Count 149 L MPV 8.5 Neut % (Auto) 76.6 H Lymph % (Auto) 16.0 [place] % (Auto) 6.4 Eos % (Auto) 0.6 Baso % (Auto) 0.4 Neut # (Auto) 5.3 Lymph # (Auto) 1.1 [place] # (Auto) 0.4 Eos # (Auto) 0.0 Baso # (Auto) 0.0 WBC Differential . Differential Comment Auto diff final Sodium 139 Potassium 3.7 Chloride 108 H Carbon Dioxide 23.1 Anion Gap 8 BUN 7 Creatinine 0.50 Estimated GFR Greater than 89 Random Glucose 89 Calcium 8.1 L Magnesium 2.0 Total Bilirubin 0.4 AST 7 L ALT 13 Alkaline Phosphatase 37 L Total Protein 6.8 Albumin 3.6 Lipase 71 L Beta HCG, Quant 3541 H Urine Color Yellow Urine Clarity Clear Urine pH 6.0 Ur Specific [place] 1.010 Urine Protein Negative Urine Glucose (UA) Negative Urine Ketones Trace H Urine Occult Blood Negative Urine Nitrate Negative Urine Bilirubin Negative Urine Urobilinogen Less than 2 Ur Leukocyte Esterase Negative Urine RBC 1 Urine WBC 1 Ur Squamous Epith Cells 3 Urine Bacteria Rare H Micro UA Comment Culture not ind Ur Microscopic Review Not Reportable Urine Culture Comments Culture not ind Blood Type Antibody Screen 08/07/18 15:52 WBC RBC Hgb Hct MCV MCH MCHC RDW Plt Count MPV Neut % (Auto) Lymph % (Auto) [place] % (Auto) Eos % (Auto) Baso % (Auto) Neut # (Auto) Lymph # (Auto) [place] # (Auto) Eos # (Auto) Baso # (Auto) WBC Differential Differential Comment Sodium Potassium Chloride Carbon Dioxide Anion Gap BUN Creatinine Estimated GFR Random Glucose Calcium Magnesium Total Bilirubin AST ALT Alkaline Phosphatase Total Protein Albumin Lipase Beta HCG, Quant Urine Color Urine Clarity Urine pH Ur Specific [place] Urine Protein Urine Glucose (UA) Urine Ketones Urine Occult Blood Urine Nitrate Urine Bilirubin Urine Urobilinogen Ur Leukocyte Esterase Urine RBC Urine WBC Ur Squamous Epith Cells Urine Bacteria Micro UA Comment Ur Microscopic Review Urine Culture Comments Blood Type O Positive Antibody Screen Negative - Imaging Impressions Pelvis Ultrasound 08/07/18 12:54 CONCLUSION: 1. Right adnexal/ovarian ectopic with cardiac activity. The heart rate was calculated 117 bpm. A yolk sac is present. The pole correlates to gestational age of 6 weeks and 0 days. Trace free fluid is noted. The findings were called immediately to Michelle Cabrera at 3:50 PM on 08/07/2018. 2. Complex fluid collection within the endometrial cavity and extending into a tubular structure within the left adnexal region.
--- NOTE | 2018-08-08 09:20 | P.PNOB ---
Assessment and Plan (1) Ectopic without intrauterine Status: Acute - Postoperative Procedures Operation Date: 08/07/18 17:00 Actual Procedures Side Surgeon p exam under anesthesia, lapaoscopy, removal of ectopic with right side salpingectomy-oophrectomy, cystoscopy Regan Pike MD SAME Postoperative day: 1 Postoperative status: doing well Postoperative plan: routine post-op care, discharge (Doing well and will see in office next week to discuss path. Ok to be off work until 08/15 but can return sooner if desires. Has I/P. Given Rx for toradol and phone # of office.) - Time Spent With Patient Total time spent is greater than 50% in coordination of care (as documented) at patient's floor/unit and/or counseling patient: 15 less than 15 minutes Subjective Interval history: Patient is a 33-year-old female presents to the ED with sharp and cramping , right-sided and suprapubic abdominal pain Subjective: patient reports feeling better Physical Exam Vital signs: Temp Pulse Resp BP Pulse Ox 97.9 F 80 17 113/60 98 08/08/18 04:49 08/08/18 04:49 08/08/18 04:49 08/08/18 04:49 08/08/18 04:49 OK - Constitutional no acute distress - Routine Abdominal Exam Present: soft, normoactive bowel sounds - Urinary Catheter Management Indwelling Urethral Catheter Cath placed during this visit: yes Urethral indwelling: No Insertion date: 08/07/18 Insertion time: 18:05 Results - Labs CBC & Chem 7: 08/07/18 13:16 08/07/18 13:16 Labs: Laboratory Results - last 24 hr 08/07/18 08/07/18 08/07/18 13:16 13:16 13:25 WBC 6.9 RBC 3.38 L Hgb 10.0 L Hct 30.2 L MCV 89.4 MCH 29.6 MCHC 33.1 RDW 13.8 Plt Count 149 L MPV 8.5 Neut % (Auto) 76.6 H Lymph % (Auto) 16.0 [place] % (Auto) 6.4 Eos % (Auto) 0.6 Baso % (Auto) 0.4 Neut # (Auto) 5.3 Lymph # (Auto) 1.1 [place] # (Auto) 0.4 Eos # (Auto) 0.0 Baso # (Auto) 0.0 WBC Differential . Differential Comment Auto diff final Sodium 139 Potassium 3.7 Chloride 108 H Carbon Dioxide 23.1 Anion Gap 8 BUN 7 Creatinine 0.50 Estimated GFR Greater than 89 Random Glucose 89 Calcium 8.1 L Magnesium 2.0 Total Bilirubin 0.4 AST 7 L ALT 13 Alkaline Phosphatase 37 L Total Protein 6.8 Albumin 3.6 Lipase 71 L Beta HCG, Quant 3541 H Urine Color Yellow Urine Clarity Clear Urine pH 6.0 Ur Specific [place] 1.010 Urine Protein Negative Urine Glucose (UA) Negative Urine Ketones Trace H Urine Occult Blood Negative Urine Nitrate Negative Urine Bilirubin Negative Urine Urobilinogen Less than 2 Ur Leukocyte Esterase Negative Urine RBC 1 Urine WBC 1 Ur Squamous Epith Cells 3 Urine Bacteria Rare H Micro UA Comment Culture not ind Ur Microscopic Review Not Reportable Urine Culture Comments Culture not ind Blood Type Antibody Screen 08/07/18 15:52 WBC RBC Hgb Hct MCV MCH MCHC RDW Plt Count MPV Neut % (Auto) Lymph % (Auto) [place] % (Auto) Eos % (Auto) Baso % (Auto) Neut # (Auto) Lymph # (Auto) [place] # (Auto) Eos # (Auto) Baso # (Auto) WBC Differential Differential Comment Sodium Potassium Chloride Carbon Dioxide Anion Gap BUN Creatinine Estimated GFR Random Glucose Calcium Magnesium Total Bilirubin AST ALT Alkaline Phosphatase Total Protein Albumin Lipase Beta HCG, Quant Urine Color Urine Clarity Urine pH Ur Specific [place] Urine Protein Urine Glucose (UA) Urine Ketones Urine Occult Blood Urine Nitrate Urine Bilirubin Urine Urobilinogen Ur Leukocyte Esterase Urine RBC Urine WBC Ur Squamous Epith Cells Urine Bacteria Micro UA Comment Ur Microscopic Review Urine Culture Comments Blood Type O Positive Antibody Screen Negative - Imaging Impressions Pelvis Ultrasound 08/07/18 12:54 CONCLUSION: 1. Right adnexal/ovarian ectopic with cardiac activity. The heart rate was calculated 117 bpm. A yolk sac is present. The pole correlates to gestational age of 6 weeks and 0 days. Trace free fluid is noted. The findings were called immediately to Michelle Cabrera at 3:50 PM on 08/07/2018. 2. Complex fluid collection within the endometrial cavity and extending into a tubular structure within the left adnexal region.
[2018-08-08 09:41] VITALS: RESP 18
[2018-08-08 09:52] VITALS: BP 117/61; PULSE 68; TEMP 98.2
== END 2018-08-08 10:44 | disposition home or self-care (01) ==
LOC: NEPD 11:39 → NEDA 16:58 → N06 21:06
PROVIDERS: ADMIT Obstetrics & Gynecology; ATTEND Obstetrics & Gynecology